=== PATIENT | male | born 1990 | race Caucasian/White ===

== ENCOUNTER 2017-07-13 18:25 | Emergency (ER) | payer BC, OTHER ==
[2017-07-13 18:39] VITALS: BP 109/76
--- NOTE | 2017-07-13 18:39 | ED Physician Documentation ---
Low Back Pain - HISTORIAN Historian: patient - HPI Chief Complaint: Low Back Pain/ Injury Additional Information: Patient states that he has injured his lower back 10 years ago with occasional flare ups. Started to have problems once again yesterday. No precipitating factor noted. Has been taking some Icy/Hot and Ibuprofen which did not help a lot. Pain is worse with movement, bending. Sitting seems to help some. Pain is sharp burning in nature. Feels like muscle spasm. Onset: days ago (yesterday AM) Duration: continues in ED Recent Injury: No Context: other (no precipitating factor noted.) Severity: moderate Quality: burning, sharp Associated Symptoms: denies: fever, chills, sweating, constipation, incontinence , nausea, vomiting, problems urinating - ROS CONST: no problems - PAST HX Past History: other (ADHD) Surgeries/Procedures: other (arm fracture) Allergies/Adverse Reactions: Allergies Allergy/AdvReac Type Severity Reaction Status Date / Time No Known Allergies Allergy Verified 07/13/17 18:39 Home Medications: Ambulatory Orders Medication Instructions Recorded Cyclobenzaprine HCl [Flexeril] 5 mg PO Q8 PRN #20 tablet 07/13/17 - SOCIAL HX Smoking History: non-smoker Alcohol Use: occasionally Drug Use: none - FAMILY HX Family History: no significant history - VITAL SIGNS Vital Signs: Vital Signs Temp Pulse Resp BP Pulse Ox 97.6 F 80 18 109/76 97 07/13/17 18:25 07/13/17 18:25 07/13/17 18:25 07/13/17 18:25 07/13/17 18:25 - REVIEWED ASSESSMENTS Nursing Assessment Reviewed: Yes Vitals Reviewed: Yes ED Results Lab/Radiology - Orders Orders: ED Orders Category Date Time Status Cyclobenzaprine HCl [Flexeril] Med 07/13/17 18:40 Discontinued 5 mg .ROUTE .STK-MED ONE Cyclobenzaprine HCl [Flexeril] Med 07/13/17 18:39 Discontinued 5 mg PO NOW ONE Ketorolac Tromethamine [Toradol] Med 07/13/17 18:40 Discontinued 60 mg .ROUTE .STK-MED ONE Ketorolac Tromethamine [Toradol] Med 07/13/17 18:39 Discontinued 60 mg IM NOW ONE Low Back Pain/Injury - Physical Exam General Appearance: alert, mild distress Resp/CVS: chest non-tender, breath sounds nml, heart sounds nml, no resp. distress Abdomen: non-tender, no organomegaly, no pulsatile mass Back: muscle spasm (lower thoracic area, tender to palpation) Straight Leg Raising: Negative Left, Negative Right Neuro/Psych: oriented x3, motor nml, sensation nml, reflexes nml, mood/affect nml Skin: warm/dry Discharge Clincal Impression: Strain of muscle and tendon of back wall of thorax, initial encounter Referrals: Primary Doctor,No [Primary Care Provider] - 2 Days Additional Instructions: Take some Ibuprofen 200mg tablets, (3-4 tablet) every 8 hours with food as needed for pain; or take Alvev 220mg tablets (2 tablets) every 12 hours with food as needed for pain. Do exercises for back. Take cyclobenzapine 5mg every 8 hours as needed for muscle spasms. If you continue to have problems to follow up with your primary care provider. Condition: Stable Disposition: 01 HOME, SELF-CARE Decision to Admit: NO Date of Decison to Admit: 07/13/17 Decision Time: 18:53
[2017-07-13] MEDS: CYCLOBENZAPRINE HCL 5 MG TABLET ONE (18:45)
[2017-07-13] MEDS: KETOROLAC TROMETHAMINE 60 MG/2 ML VIAL IM ONE (18:45)
[2017-07-13] MEDS: CYCLOBENZAPRINE HCL 5 MG TABLET PO ONE (18:45)
[2017-07-13] MEDS: KETOROLAC TROMETHAMINE 60 MG/2 ML VIAL ONE (18:45)
== END 2017-07-13 19:00 | disposition home or self-care (01) ==
LOC: ED 18:25
DX: S29.012A Strain of muscle and tendon of back wall of thorax, initial encounter (principal); X58.XXXA Exposure to other specified factors, initial encounter; Y93.9 Activity, unspecified; Y92.9 Unspecified place or not applicable; Y99.9 Unspecified external cause status
CPT/HCPCS: 96372; 99282; 99283; J1885